=== PATIENT | female | born 1945 | race Caucasian/White ===

== ENCOUNTER 2023-06-23 06:51 | Inpatient (IN) | payer MEDICARE, OTHER, SELFPAY ==
[2023-06-23] VITALS (20 sets, daily range): BP systolic 103–167; BP diastolic 57–96; PULSE 87–125; RESP 14–32; TEMP 36.4–36.9; O2SAT 90–100; BMI 13.4
--- NOTE | 2023-06-23 06:56 | ECG_ITS ---
[facility] Test Date: 2023-06-23 Pat Name: Valencia Neri Department: Room: Gender: Female [employer]er [employer]: : 1945 Requested By: Jake Salazar Order Number: [id number] Mile MD: Dora Fisher M.D. Measurements Intervals [place] Rate: 121 P: 78 NV: 120 QRS: 71 QRSD: 89 T: 73 QT: 305 QTc: 433 Interpretive Statements SINUS TACHYCARDIA SEPTAL MYOCARDIAL INFARCTION , PROBABLY OLD [40+ ms Q WAVE IN V1/V2] No previous ECG available for comparison Electronically Signed On 06-23-2023 11:08:22 CDT by Dora Fisher M.D. [id number]
--- NOTE | 2023-06-23 06:56 | XRR_ITS ---
PROCEDURE INFORMATION: Exam: XR Chest Exam date and time: 06/23/2023 7:34 AM Age: 77 years old Clinical indication: Cough and dyspnea; Additional info: Dyspnea/cough TECHNIQUE: Imaging protocol: Radiologic exam of the chest. Views: 1 view. COMPARISON: No relevant prior studies available. FINDINGS: Lungs: Hyperinflated lungs. Pleural spaces: Unremarkable. No pleural effusion. No pneumothorax. Heart/Mediastinum: Unremarkable. No cardiomegaly. Bones/joints: Unremarkable. XR/XR chest 1V portable [id number] IMPRESSION: Hyperinflated lungs. No acute process
--- NOTE | 2023-06-23 07:00 | W.ED.SOB ---
HPI - SOB/Dyspnea General: Chief Complaint: Shortness of Breath/Dyspnea Stated Complaint: SOB Time Seen by Provider: 06/23/23 06:56 Source: patient Mode of arrival: ambulatory History of Present Illness: HPI Narrative: 77 yo female presents emergency room via EMS for complaints of shortness of breath and cough that worsened last night. Patient is a lifelong 1-2 pack-a-day smoker who is COPD and has not been on oxygen up to this point. She denies any fever sweats or chills EMS reported room air O2 sats 88% on their arrival she was given Solu-Medrol and DuoNeb in route is feeling much better and her sats are now in the upper 90s on room air. Denies chest or abdominal pain. She has had increased cough, mildly productive MD elicited complaint: shortness of breath and cough Pertinent past history: COPD Onset (ago): day(s) (1) Timing: constant Severity: moderate Exacerbating factors: exertion and coughing Relieving factors: oxygen, rest and bronchodilators Known history of: COPD Associated symptoms: Reports chest congestion and cough; Deny abdominal pain, chest pain, diaphoresis, dizziness, extremity pain, fever(s), hemoptysis, lightheadedness, myalgias, nausea, orthopnea, palpitations, paresthesias, polydipsia, polyuria, rash, sense of impending doom, syncope or vomiting Treatment prior to arrival: bronchodilator and other (Corticosteroids) Review of Systems Const: Denies: fever(s), chills or diaphoresis ENMT: Denies: throat pain, ear or mastoid pain, nasal discharge or nasal congestion Card: Denies: chest pain, palpitations, lightheadedness, syncope or orthopnea Resp: Reports: dyspnea, productive cough, wheezing and chest congestion; Denies: hemoptysis GI: Denies: abdominal pain, nausea or vomiting : Denies: flank pain, difficulty voiding, dysuria, urinary frequency or urinary urgency Musc: Denies: extremity pain Skin/Breast: Denies: rash or pruritus Neuro: Denies: dizziness Endo: Denies: polyuria or polydipsia [facility] ED PFSH: Medical History (Updated 06/23/23 @ 09:46 by Brent Mahmood MD) COPD (chronic obstructive pulmonary disease) History of myocardial infarction Osteogenesis imperfecta Surgical History (Updated 06/23/23 @ 09:42 by Brent Mahmood MD) History of surgery on lower extremity Family History Other CAD (coronary artery disease) Social History (Updated 06/23/23 @ 09:43 by Brent Mahmood MD) Smoking and tobacco status: current every day smoker cigarettes Packs smoked per day: 2 Years cigarettes smoked: 60 Alcohol intake: never Physical Exam Const: GENERAL APPEARANCE: cooperative and comfortable ORIENTATION/CONSCIOUSNESS: Yes awake, Yes oriented to person, Yes oriented to place and Yes oriented to time HENMT: COMMON NORMALS: normocephalic, atraumatic and hearing grossly normal bilaterally HEAD & SCALP: normocephalic and atraumatic Chest: CHEST: Yes other (Significant barrel chest deformity) Resp: COMMON NORMALS: normal respiratory effort, No retractions and No use of accessory muscles AUSCULTATION: wheezes Cardio: COMMON NORMALS: regular rhythm and No murmurs present (Cardio) RATE: tachycardic RHYTHM: regular rhythm GI: COMMON NORMALS: Soft to palpation and No hepatosplenomegaly present AUSCULTATION: Yes normoactive bowel sounds PALPATION: Yes Soft to palpation, No Tenderness to palpation present (GI), No Guarding due to palpation present (GI) and Yes No hepatosplenomegaly present Extremity: COMMON NORMALS: normal to inspection, capillary refill normal, no clubbing, cyanosis or edema, no calf tenderness and no pedal edema Neuro: SENSORIUM/ORIENTATION: Yes oriented to person, Yes oriented to place and Yes oriented to time Skin: COMMON NORMALS: no rashes or lesions noted GENERAL SKIN EXAM: no rashes or lesions noted Course Vital Signs: Vital signs: Vital Signs Temperature 97.8 F 06/23/23 13:30 Pulse Rate 98 06/23/23 13:30 Respiratory Rate 15 06/23/23 13:30 Blood Pressure 126/66 06/23/23 13:30 Pulse Oximetry 95 06/23/23 13:30 Oxygen Delivery Me thod Nasal Cannula 06/23/23 13:30 Oxygen Flow Rate 3 06/23/23 08:41 Fraction of Inspir ed Oxygen 35 06/23/23 08:45 MDM - SOB/Dyspnea Medical Decision Making Initially on arrival sats maintaining good on room air however worsening now requiring 3 L/min is maintaining in the low 90s. She is mildly acidotic on her blood gas. She reports feeling better after the nebulizer. She has received Solu-Medrol as well. She does report a mild increase in baseline cough with productive purulent sputum. We will start her on Levaquin and admit continue steroids. We will discuss with the hospitalist. Patient placed on BiPAP. Medical Records I reviewed the patient's medical records. Lab Data I reviewed the patient's lab results. 06/23/23 06:53 06/23/23 06:53 Labs/Radiology: Radiology Impressions Chest X-Ray 06/23/23 06:56 IMPRESSION: Hyperinflated lungs. No acute process Laboratory Results WBC 14.6 10^3/uL (4.0-10.0) H 06/23/23 06:53 RBC 4.45 10^6/uL (4.1-5.3) 06/23/23 06:53 Hgb 14.3 g/dL (11.5-15.3) 06/23/23 06:53 Hct 44.5 % (37.0-47.0) 06/23/23 06:53 MCV 100.0 fl (81-99) H 06/23/23 06:53 MCH 32.1 pg (28.0-34.0) 06/23/23 06:53 MCHC 32.1 g/dL (30.0-36.0) 06/23/23 06:53 RDW 13.0 % (12.1-15.1) 06/23/23 06:53 Plt Count 352 10^3/cmm (130-400) 06/23/23 06:53 MPV 9.3 fL (7.4-10.4) 06/23/23 06:53 Neut % (Auto) 71.4 % 06/23/23 06:53 Lymph % (Auto) 17.5 % 06/23/23 06:53 [place] % (Auto) 9.5 % 06/23/23 06:53 Eos % (Auto) 0.5 % 06/23/23 06:53 Baso % (Auto) 0.7 % 06/23/23 06:53 Neut # (Auto) 10.38 10^3/uL (1.8-7.7) H 06/23/23 06:53 Lymph # (Auto) 2.6 10^3/uL (0.8-4.8) 06/23/23 06:53 [place] # (Auto) 1.4 10^3/uL (0.2-0.9) H 06/23/23 06:53 Eos # (Auto) 0.1 10^3/uL (0.0-0.8) 06/23/23 06:53 Baso # (Auto) 0.1 10^3/uL (0.0-0.1) 06/23/23 06:53 Nucleated RBC % (auto) 0 % 06/23/23 06:53 Nucleated RBCs # 0.0 /100WBC 06/23/23 06:53 Specimen Type Arterial 06/23/23 07:06 Sample Site Radial, left 06/23/23 07:06 ABG pH 7.32 (7.35-7.45) L 06/23/23 07:06 ABG pCO2 45.7 mmHg (35-45) H 06/23/23 07:06 ABG pO2 60.8 mmHg (80.0-100.0) L 06/23/23 07:06 ABG HCO3 23.4 mmol/L (22-26) 06/23/23 07:06 ABG O2 Saturation 91.2 06/23/23 07:06 ABG Base Excess -2.9 mmol/L (-2.0-2.0) L 06/23/23 07:06 Kp Test Pos 06/23/23 07:06 A-a O2 Gradient 4.4 mmHg (5-10) L 06/23/23 07:06 Hematocrit 44.9 % (37-47) 06/23/23 07:06 Hgb O2 Saturation 89.1 % (95-100) L 06/23/23 07:06 Carboxyhemoglobin 1.9 %THgb (0.4-20.1) 06/23/23 07:06 Methemoglobin 0.4 % (0.4-1.5) 06/23/23 07:06 Total Hemoglobin 14.7 g/dL (12-16) 06/23/23 07:06 Sodium 138.0 mmol/L (131-143) 06/23/23 07:06 Potassium 4.0 mmol/L (3.5-5.0) 06/23/23 07:06 Glucose 100.0 mg/dL (70-115) 06/23/23 07:06 Ionized Calcium 1.2 mmol/L (1.1-1.4) 06/23/23 07:06 O2 Delivery Device Nc 06/23/23 07:06 O2 Liters/Min 2.0 % 06/23/23 07:06 [employer] Ranger ID [place] 06/23/23 07:06 Sodium 135 mmol/L (136-145) L 06/23/23 06:53 Potassium 4.5 mmol/L (3.5-5.1) 06/23/23 06:53 Chloride 98 mmol/L (98-107) 06/23/23 06:53 Carbon Dioxide 23 mmol/L (22-29) 06/23/23 06:53 Anion Gap 18.5 (5-19) 06/23/23 06:53 BUN 11 mg/dL (8-23) 06/23/23 06:53 Creatinine 0.6 mg/dL (0.5-0.9) 06/23/23 06:53 GFR Calculation Not Reportable 06/23/23 06:53 Glucose 90 mg/dL (65-115) 06/23/23 06:53 Calculated Osmolality 279 mOsm/kg (285-295) L 06/23/23 06:53 Calcium 8.9 mg/dL (8.5-10.5) 06/23/23 06:53 Magnesium 2.0 mg/dL (1.7-2.3) 06/23/23 06:53 Total Bilirubin 0.5 mg/dL (0.15-1.2) 06/23/23 06:53 AST 16 U/L (0-32) 06/23/23 06:53 ALT 11 U/L (0-33) 06/23/23 06:53 Alkaline Phosphatase 85 U/L (35-105) 06/23/23 06:53 NT-Pro-B Natriuret Pep 233 pg/mL (0-450) 06/23/23 06:57 Total Protein 6.8 g/dL (6.6-8.7) 06/23/23 06:53 Albumin 4.2 g/dL (3.5-5.2) 06/23/23 06:53 Globulin 2.6 g/dL (1.3-4.6) 06/23/23 06:53 TSH 4.65 uIU/mL (0.27-4.20) H 06/23/23 06:57 Urine Color Yellow (Yellow) 06/23/23 07:58 Urine Appearance Clear (CLEAR) 06/23/23 07:58 Urine pH 5 (5-7) 06/23/23 07:58 Ur Specific [place] 1.025 (1.005-1.030) 06/23/23 07:58 Urine Protein Neg (Negative) 06/23/23 07:58 Urine Glucose (UA) Norm (Normal) 06/23/23 07:58 Urine Ketones 2+ (Negative) H 06/23/23 07:58 Urine Blood Neg (Negative) 06/23/23 07:58 Urine Nitrate Negative (Negative) 06/23/23 07:58 Urine Bilirubin 1+ (Negative) H 06/23/23 07:58 Urine Urobilinogen Norm mg/dL (Negative) 06/23/23 07:58 Ur Leukocyte Esterase Negative (Negative) 06/23/23 07:58 Discharge Plan Discharge Patient Disposition: Placed in Observation Admit Provider: Brent Mahmood Clinical Impression: Acute exacerbation of chronic obstructive airways disease Coding Level of Care Code ED Maintenance Trainer for Dionisio Tsang
[2023-06-23 07:05] LABS: Basophils # 0.1 10^3/uL (0.0-0.1); Basophils % 0.7 %; Eosinophils # 0.1 10^3/uL (0.0-0.8); Eosinophils % 0.5 %; Hematocrit 44.5 % (37.0-47.0); Hemoglobin 14.3 g/dL (11.5-15.3); Lymphocytes # 2.6 10^3/uL (0.8-4.8); Lymphocytes % 17.5 %; Mean Corpuscular HGB Conc 32.1 g/dL (30.0-36.0); Mean Corpuscular Hemoglobin 32.1 pg (28.0-34.0); Mean Platelet Volume 9.3 fL (7.4-10.4); Monocytes # 1.4 10^3/uL (0.2-0.9); Monocytes % 9.5 %; Neutrophils # 10.38 10^3/uL (1.8-7.7); Neutrophils % 71.4 %; Nucleated Red Blood Cells % 0 %; Platelet Count 352 10^3/cmm (130-400); Red Blood Count 4.45 10^6/uL (4.1-5.3); White Blood Count 14.6 10^3/uL (4.0-10.0)
[2023-06-23] MEDS: methylPREDNISolone sod succ 125 MG in water for injection-sterile 2 ML 24 MG IVP (07:13)
[2023-06-23 07:17] LABS: ABG PCO2 45.7 mmHg (35-45); ABG PH Result 7.32 (7.35-7.45); Alveolar-Arterial Oxygen Gradi 4.4 mmHg (5-10); Arterial Blood Gas Hematocrit 44.9 % (37-47); Base Excess ABG -2.9 mmol/L (-2.0-2.0); Blood Gas Allen Test Pos; Blood Gas Operator Identificat WALCI; Blood Gas Sample Site Radial, left; Blood Gas Sample Type Arterial; Carboxyhemoglobin 1.9 %THgb (0.4-20.1); HCO3 ABG 23.4 mmol/L (22-26); HGB O2 Sat 89.1 % (95-100); Ionized Calcium Level - ABG 1.2 mmol/L (1.1-1.4); Methemoglobin 0.4 % (0.4-1.5); Oxygen Device NC; Oxygen Saturation ABG 91.2; PO2 ABG 60.8 mmHg (80.0-100.0); Total Hemoglobin 14.7 g/dL (12-16)
[2023-06-23 07:22] LABS: Alanine Aminotransferase 11 U/L (0-33); Albumin Level 4.2 g/dL (3.5-5.2); Alkaline Phosphatase 85 U/L (35-105); Blood Urea Nitrogen 11 mg/dL (8-23); Calcium 8.9 mg/dL (8.5-10.5); Carbon Dioxide 23 mmol/L (22-29); Chloride 98 mmol/L (98-107); Globulin 2.6 g/dL (1.3-4.6); Glucose 90 mg/dL (65-115); Osmolality Calculated 279 mOsm/kg (285-295); Sodium 135 mmol/L (136-145); Total Bilirubin 0.5 mg/dL (0.15-1.2); Total Protein 6.8 g/dL (6.6-8.7)
[2023-06-23] MEDS: ipratropium-albuterol 3 mL Neb INHALATION ×4 (07:22→20:44)
--- NOTE | 2023-06-23 07:23 | PC.NURSE ---
PUSHED MEDS FOR PT AN RN STUDENT
[2023-06-23 07:27] LABS: Anion Gap 18.5 (5-19); Aspartate Amino Transferase 16 U/L (0-32); Potassium 4.5 mmol/L (3.5-5.1)
[2023-06-23 08:11] LABS: Add Urine Microscopic? NO; Charge for UA Resulting for Rev
[2023-06-23 08:21] LABS: Bilirubin Urine 1+ (Negative); Blood Urine Neg (Negative); Glucose Urine UA Norm (Normal); Ketones Urine 2+ (Negative); Leukocyte Esterase Urine Negative (Negative); Nitrate Urine Negative (Negative); Protein Urine Neg (Negative); Specific Gravity, Urine 1.025 (1.005-1.030); Urine Appearance Clear (CLEAR); Urine Color Yellow (Yellow); Urobilinogen Urine Norm (Negative); pH Urine 5 (5-7)
--- NOTE | 2023-06-23 08:25 | PC.NURSE ---
PT WAS UPPED FROM 2L OS NC TO 3L O2 NC PER DR LEZAMA
[2023-06-23] MEDS: levofloxacin-dextrose 5 % 500 MG/100 ML PREMIX 100 MG IV (08:46)
--- NOTE | 2023-06-23 09:39 | P.HP_ITS ---
Providers/Chief Complaint Admitting Physician: Brent Mahmood MD Primary Care Provider: JAXON Carpio Chief Complaint: SOB History of Present Illness Valencia Neri is a 77 year old female with history of COPD, osteogenesis imperfecta, tobacco dependency who presents with worsening shortness of breath over the last week, but worsening significantly last night. She reports a cough productive of yellow to green sputum. No chest pain. Lots of wheezing and coughing. She reports she had some nausea but no vomiting. She denies any lower extremity swelling. She reports she has not been using any oxygen at home, although as this was suggested at a previous physician's appointment. 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 No fever. 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 Review of Systems General: Reports: 10 or more systems reviewed and unremarkable except in HPI and below Card: Denies: chest pain or swelling of feet/ankles Resp: Reports: dyspnea, productive cough and wheezing GI: Reports: nausea; Denies: abdominal pain, vomiting, hematochezia or melena Medications/Allergies Home Medications Medication Instructions Recorded Confirmed Last Taken Type albuterol sulfate 90 mcg/actuation 2 puff inhalation QID PRN 06/23/23 06/23/23 Unknown History aerosol inhaler Shortness Of Breath aspirin 325 mg tablet 325 mg PO Q6H PRN Pain 06/23/23 06/23/23 Unknown History diphenhydramine HCl 25 mg tablet 25 mg PO DAILY PRN Allergy Symptoms 06/23/23 06/23/23 Unknown History (Benadryl Allergy) fluticasone 250 mcg-salmeterol 50 1 inh inhalation BID 06/23/23 06/23/23 Unknown History mcg/dose blistr powdr for inhalation (Wixela Inhub) Allergies Allergy/AdvReac Type Severity Reaction Status Date / Time Penicillins Allergy ALGY-Anaphy Verified 06/23/23 07:39 laxis PFSH Acute PFSH: Medical History (Updated 06/23/23 @ 09:46 by Brent Mahmood MD) COPD (chronic obstructive pulmonary disease) History of myocardial infarction Osteogenesis imperfecta Surgical History (Updated 06/23/23 @ 09:42 by Brent Mahmood MD) History of surgery on lower extremity Family History Other CAD (coronary artery disease) Social History (Updated 06/23/23 @ 09:43 by Brent Mahmood MD) Smoking and tobacco status: current every day smoker cigarettes Packs smoked per day: 2 Years cigarettes smoked: 60 Alcohol intake: never Vitals/I&O/Wt Last Vital Signs Temp 98.4 F 06/23/23 06:57 Pulse 116 H 06/23/23 09:32 Resp 20 H 06/23/23 09:32 BP 103/63 06/23/23 09:32 Pulse Ox 96 06/23/23 09:32 O2 Del Method Room Air 06/23/23 09:32 O2 Flow Rate 3 06/23/23 08:41 FiO2 35 06/23/23 08:45 06/22/23 06/23/23 06/23/23 22:59 06:59 14:59 Intake Total 2 / 2 Balance 2 / Weight last 48 hrs Weight 36.741 kg Physical Exam Narrative: General exam is white female, with tachypnea, on BiPAP but able to carry on a conversation. HEENT: Atraumatic normocephalic. Oropharynx not examined as she is on BiPAP Neck is supple no lymphadenopathy thyromegaly Cardiovascular tachycardic, regular, 2 or 6 systolic murmur Lungs diminished breath sounds bilaterally. Occasional wheeze. Barrel chest is noted Abdomen is soft, positive bowel sounds. No obvious organomegaly exams deferred Extremities no cyanosis clubbing or edema, cap refill brisk Skin no rash Neuro no focal deficits Data 06/23/23 06:53 06/23/23 06:53 Other Labs: Chest x-ray which I reviewed demonstrates severe COPD EKG demonstrates sinus tachycardia, normal axis, septal Q waves, nonspecific ST- T wave changes. I reviewed this personally. ABG demonstrates pH 7.32, PCO2 46, PO2 of 61 on 2 L LFTs are normal Urinalysis with 2+ ketones and 1+ bilirubin, otherwise negative Viral panel pending A&P Assessment and plan (1) Acute exacerbation of chronic obstructive airways disease: Patient with severe acute COPD exacerbation associated with respiratory failure requiring BiPAP In detailed conversation with her. She would never want CPR, or intubation. Budesonide twice daily DuoNeb every 4 hours Continue Solu-Medrol IV Wean off BiPAP as tolerated CBC, CMP, magnesium level in the morning (2) Acute bronchitis: Continue Levaquin, initiated in the ER at 750 mg IV every 24 hours Await viral sputum studies (3) Acute respiratory failure: Currently on BiPAP secondary to acute hypoxic and hypercarbic respiratory failure See notations above (4) History of myocardial infarction: Continue aspirin Considering her body habitus any attempted echo will generate a very poor quality study. Will go ahead and check a BNP, which I suspect will be slightly high. Plan Other medical problems as outlined in past medical history Allow natural Lovenox for DVT prophylaxis Attestations Medical Necessity Statement*: Will require greater than 2 midnight stay for evaluation and treatment of acute respiratory failure and acute COPD exacerbation Diagnoses Acute exacerbation of chronic obstructive airways disease J44.1 Acute bronchitis J20.9 Acute respiratory failure J96.00 History of myocardial infarction I25.2 Time Spent (min) 43
[2023-06-23 10:22] LABS: NT Pro B Type Natriuretic Pept 233 pg/mL (0-450); Thyroid Stimulating Hormone 4.65 uIU/mL (0.27-4.20)
[2023-06-23 11:01] LABS: Adenovirus Not Detected (NOT DETECT); Chlamydia Pneumoniae Not Detected (NOT DETECT); Coronavirus 229E,HKU1,NL63,OC4 Not Detected (NOT DETECT); Human Metapneumovirus Not Detected (NOT DETECT); Human Rhinovirus/Enterovirus Not Detected (NOT DETECT); Influenza A Not Detected (NOT DETECT); Influenza A H1 Not Detected (NOT DETECT); Influenza A H1-2009 Not Detected (NOT DETECT); Influenza A H3 Not Detected (NOT DETECT); Influenza B Not Detected (NOT DETECT); Mycoplasma Pneumoniae Not Detected (NOT DETECT); Parainfluenza Virus Type 1 Not Detected (NOT DETECT); Parainfluenza Virus Type 2 Not Detected (NOT DETECT); Parainfluenza Virus Type 3 Not Detected (NOT DETECT); Parainfluenza Virus Type 4 Not Detected (NOT DETECT); Respiratory Syncytial Virus A Not Detected (NOT DETECT); Respiratory Syncytial Virus B Not Detected (NOT DETECT); SARS-COV-2 Not Detected (NOT DETECT)
[2023-06-23] MEDS: methylPREDNISolone sod succ 60 MG in water for injection-sterile 0.96 ML 11.52 MG IVP (18:06)
[2023-06-23] MEDS: budesonide 0.5 mg/2 mL Neb INHALATION (20:44)
[2023-06-24] VITALS (11 sets, daily range): BP systolic 134–157; BP diastolic 73–79; PULSE 79–107; RESP 17–22; TEMP 36.4–36.5; O2SAT 86–97
[2023-06-24] MEDS: ipratropium-albuterol 3 mL Neb INHALATION ×4 (00:01→11:06)
[2023-06-24 05:22] LABS: Basophils % 0.2 %; Hematocrit 38.9 % (37.0-47.0); Hemoglobin 12.8 g/dL (11.5-15.3); Lymphocytes # 0.6 10^3/uL (0.8-4.8); Lymphocytes % 4.6 %; Mean Corpuscular HGB Conc 32.9 g/dL (30.0-36.0); Mean Corpuscular Hemoglobin 31.9 pg (28.0-34.0); Mean Platelet Volume 9.7 fL (7.4-10.4); Monocytes # 1.1 10^3/uL (0.2-0.9); Monocytes % 8.1 %; Neutrophils % 86.7 %; Nucleated Red Blood Cells % 0 %; Platelet Count 312 10^3/cmm (130-400); Red Blood Count 4.01 10^6/uL (4.1-5.3); Red Cell Distribution Width 12.9 % (12.1-15.1)
[2023-06-24 05:43] LABS: Alanine Aminotransferase 11 U/L (0-33); Albumin Level 3.9 g/dL (3.5-5.2); Alkaline Phosphatase 84 U/L (35-105); Anion Gap 14.6 (5-19); Aspartate Amino Transferase 15 U/L (0-32); Blood Urea Nitrogen 23 mg/dL (8-23); Carbon Dioxide 25 mmol/L (22-29); Chloride 96 mmol/L (98-107); Glucose 152 mg/dL (65-115); Magnesium 2.1 mg/dL (1.7-2.3); Osmolality Calculated 279 mOsm/kg (285-295); Potassium 4.6 mmol/L (3.5-5.1); Sodium 131 mmol/L (136-145); Total Bilirubin 0.2 mg/dL (0.15-1.2); Total Protein 6.9 g/dL (6.6-8.7)
[2023-06-24] MEDS: methylPREDNISolone sod succ 60 MG in water for injection-sterile 0.96 ML 11.52 MG IVP (06:06)
[2023-06-24] MEDS: levofloxacin-dextrose 5 % 750 MG/150 ML PREMIX 100 MG IV (08:19)
[2023-06-24] MEDS: budesonide 0.5 mg/2 mL Neb INHALATION (08:46)
--- NOTE | 2023-06-24 10:10 | PC.CHAP ---
Pastoral Care Encounter/Spiritual Assessment Type of Contact [] Declined machine filler shredder visit [] Patient/Family/Request visit [] Outpatient visit [] Follow-up visit [] Physician referral [] Code/Alert [x] Routine visit [] Staff referral [] Actively dying [] Patient sleeping [x] Family support [] [] Out of room [] Palliative care [] [] Receiving care in room [] Pre-surgical visit [] Trauma [] Long length of stay [] ICU visit [] Other: Relational/Emotional Strength [x] Patient feels connected with others/family/visitors/staff [] Distress [] Loneliness/isolation [] Abandonment Spirituality of Patient [x] Person of Jayna [] Attends Uatsdin of their Jayna [x] Believes in Prayer [] Reads Bible or Evangelical materials [] There are Spiritual issues to be addressed Resort Keeper Interventions [x] Prayer [x] Active listening [] Non-anxious presence [x] Spiritual/emotional support [] Crisis/trauma care [] Spiritual counseling [] Bereavement support [] Provided bereavement packet [] Provided Bible/devotional materials [] Provided toy/stuffed animal, coloring book to patient or family member [] Provided Communion [] Anointing/[place] [] Salvation [x] Completed spiritual assessment [] Other: Impact on Illness or Injury [] Angry [] Fearful [] Anxious [] Often cries [] Exhaustion [] Unable to work [] Unable to attend jain [] Unable to walk/stand [] Unable to read [] Unable to drive [] Unable to eat/drink [] Unable to sleep [] Unable to be with family [] Patient intubated [] Other: Summary Time spent with patient 5 min
[2023-06-24] MEDS: levoFLOXacin 750 mg Tablet PO (10:26)
--- NOTE | 2023-06-24 10:27 | PM.DCS ---
Discharge Providers Date of Admission: 06/23/23 08:24 Date of Discharge: June 24, 2023 Attending Provider at Admission: Brent Mahmood MD Attending Provider at Discharge: Brent Mahmood MD Primary Care Provider: JAXON Carpio Diagnoses at Discharge Discharge Diagnosis (1) Acute exacerbation of chronic obstructive airways disease: Status: Acute (2) Acute bronchitis: Status: Acute (3) Acute respiratory failure: Status: Acute (4) History of myocardial infarction: Status: Acute Reason for Visit Reason for Visit: SOB Hospital Course Hospital Course [place] is a 77-year-old white female who presents to the hospital with shortness of breath. She was found to have an acute COPD exacerbation. She was placed on IV steroids, oral antibiotics, BiPAP initially, and received frequent nebulized treatments. No pneumonia was seen on x-ray. She was able to wean off the BiPAP quickly. Wheezing improved significantly with the above treatment and she improved quicker than expected, feeling like she was back to her baseline breathing by June 24. After shared decision making occurred with the patient, she reported she would like to go home at this time to continue treatment on oral medications at home. We will arrange for nebulizer, DuoNeb as needed, finish her course of prednisone, finish her course of antibiotic, home oxygen evaluation and set up oxygen if needed, and discharged home today. She refused any home health services. Patient was given opportunity ask questions, and agreed with the plan. Physical Exam Narrative: General exam is no distress Neck is supple Cardiovascular regular rate and rhythm Lungs diminished breath sounds bilaterally but no wheezes or crackles Abdomen is soft, positive bowel sounds Extremities no cyanosis clubbing or edema Discharge Data Studies Completed and Pending Completed Studies During Hospitalization Category Date Time Status XR chest 1V portable [id number] Stat Exams 06/23/23 06:56 Completed Radiology Impressions Chest X-Ray 06/23/23 06:56 IMPRESSION: Hyperinflated lungs. No acute process Laboratory Results WBC 13.0 10^3/uL (4.0-10.0) H 06/24/23 05:06 RBC 4.01 10^6/uL (4.1-5.3) L 06/24/23 05:06 Hgb 12.8 g/dL (11.5-15.3) 06/24/23 05:06 Hct 38.9 % (37.0-47.0) 06/24/23 05:06 MCV 97.0 fl (81-99) 06/24/23 05:06 MCH 31.9 pg (28.0-34.0) 06/24/23 05:06 MCHC 32.9 g/dL (30.0-36.0) 06/24/23 05:06 RDW 12.9 % (12.1-15.1) 06/24/23 05:06 Plt Count 312 10^3/cmm (130-400) 06/24/23 05:06 MPV 9.7 fL (7.4-10.4) 06/24/23 05:06 Neut % (Auto) 86.7 % 06/24/23 05:06 Lymph % (Auto) 4.6 % 06/24/23 05:06 [place] % (Auto) 8.1 % 06/24/23 05:06 Eos % (Auto) 0.0 % 06/24/23 05:06 Baso % (Auto) 0.2 % 06/24/23 05:06 Neut # (Auto) 11.30 10^3/uL (1.8-7.7) H 06/24/23 05:06 Lymph # (Auto) 0.6 10^3/uL (0.8-4.8) L 06/24/23 05:06 [place] # (Auto) 1.1 10^3/uL (0.2-0.9) H 06/24/23 05:06 Eos # (Auto) 0.0 10^3/uL (0.0-0.8) 06/24/23 05:06 Baso # (Auto) 0.0 10^3/uL (0.0-0.1) 06/24/23 05:06 Nucleated RBC % (auto) 0 % 06/24/23 05:06 Nucleated RBCs # 0.0 /100WBC 06/24/23 05:06 Specimen Type Arterial 06/23/23 07:06 Sample Site Radial, left 06/23/23 07:06 ABG pH 7.32 (7.35-7.45) L 06/23/23 07:06 ABG pCO2 45.7 mmHg (35-45) H 06/23/23 07:06 ABG pO2 60.8 mmHg (80.0-100.0) L 06/23/23 07:06 ABG HCO3 23.4 mmol/L (22-26) 06/23/23 07:06 ABG O2 Saturation 91.2 06/23/23 07:06 ABG Base Excess -2.9 mmol/L (-2.0-2.0) L 06/23/23 07:06 Kp Test Pos 06/23/23 07:06 A-a O2 Gradient 4.4 mmHg (5-10) L 06/23/23 07:06 Hematocrit 44.9 % (37-47) 06/23/23 07:06 Hgb O2 Saturation 89.1 % (95-100) L 06/23/23 07:06 Carboxyhemoglobin 1.9 %THgb (0.4-20.1) 06/23/23 07:06 Methemoglobin 0.4 % (0.4-1.5) 06/23/23 07:06 Total Hemoglobin 14.7 g/dL (12-16) 06/23/23 07:06 Sodium 138.0 mmol/L (131-143) 06/23/23 07:06 Potassium 4.0 mmol/L (3.5-5.0) 06/23/23 07:06 Glucose 100.0 mg/dL (70-115) 06/23/23 07:06 Ionized Calcium 1.2 mmol/L (1.1-1.4) 06/23/23 07:06 O2 Delivery Device Nc 06/23/23 07:06 O2 Liters/Min 2.0 % 06/23/23 07:06 Systems Analysis Manager ID [place] 06/23/23 07:06 Sodium 131 mmol/L (136-145) L 06/24/23 05:06 Potassium 4.6 mmol/L (3.5-5.1) 06/24/23 05:06 Chloride 96 mmol/L (98-107) L 06/24/23 05:06 Carbon Dioxide 25 mmol/L (22-29) 06/24/23 05:06 Anion Gap 14.6 (5-19) 06/24/23 05:06 BUN 23 mg/dL (8-23) 06/24/23 05:06 Creatinine 0.9 mg/dL (0.5-0.9) 06/24/23 05:06 GFR Calculation Not Reportable 06/24/23 05:06 Glucose 152 mg/dL (65-115) H 06/24/23 05:06 Calculated Osmolality 279 mOsm/kg (285-295) L 06/24/23 05:06 Calcium 9.0 mg/dL (8.5-10.5) 06/24/23 05:06 Magnesium 2.1 mg/dL (1.7-2.3) 06/24/23 05:06 Total Bilirubin 0.2 mg/dL (0.15-1.2) 06/24/23 05:06 AST 15 U/L (0-32) 06/24/23 05:06 ALT 11 U/L (0-33) 06/24/23 05:06 Alkaline Phosphatase 84 U/L (35-105) 06/24/23 05:06 NT-Pro-B Natriuret Pep 233 pg/mL (0-450) 06/23/23 06:57 Total Protein 6.9 g/dL (6.6-8.7) 06/24/23 05:06 Albumin 3.9 g/dL (3.5-5.2) 06/24/23 05:06 Globulin 3.0 g/dL (1.3-4.6) 06/24/23 05:06 TSH 4.65 uIU/mL (0.27-4.20) H 06/23/23 06:57 Urine Color Yellow (Yellow) 06/23/23 07:58 Urine Appearance Clear (CLEAR) 06/23/23 07:58 Urine pH 5 (5-7) 06/23/23 07:58 Ur Specific [place] 1.025 (1.005-1.030) 06/23/23 07:58 Urine Protein Neg (Negative) 06/23/23 07:58 Urine Glucose (UA) Norm (Normal) 06/23/23 07:58 Urine Ketones 2+ (Negative) H 06/23/23 07:58 Urine Blood Neg (Negative) 06/23/23 07:58 Urine Nitrate Negative (Negative) 06/23/23 07:58 Urine Bilirubin 1+ (Negative) H 06/23/23 07:58 Urine Urobilinogen Norm mg/dL (Negative) 06/23/23 07:58 Ur Leukocyte Esterase Negative (Negative) 06/23/23 07:58 Nasal Influ A H1 2009 PCR Not detected (NOT DETECT) 06/23/23 08:40 Adenovirus (PCR) Not detected (NOT DETECT) 06/23/23 08:40 C. pneumoniae DNA (PCR) Not detected (NOT DETECT) 06/23/23 08:40 Coronavirus 229E (PCR) Not detected (NOT DETECT) 06/23/23 08:40 Human Metapneumovir PCR Not detected (NOT DETECT) 06/23/23 08:40 Influenza A (H1) PCR Not detected (NOT DETECT) 06/23/23 08:40 Influenza A (H3) PCR Not detected (NOT DETECT) 06/23/23 08:40 Influenza Type A (PCR) Not detected (NOT DETECT) 06/23/23 08:40 Influenza Type B (PCR) Not detected (NOT DETECT) 06/23/23 08:40 M. pneumoniae (PCR) Not detected (NOT DETECT) 06/23/23 08:40 Parainfluenza 1 (PCR) Not detected (NOT DETECT) 06/23/23 08:40 Parainfluenza 2 (PCR) Not detected (NOT DETECT) 06/23/23 08:40 Parainfluenza 3 (PCR) Not detected (NOT DETECT) 06/23/23 08:40 Parainfluenza 4 (PCR) Not detected (NOT DETECT) 06/23/23 08:40 RSV Type A (PCR) Not detected (NOT DETECT) 06/23/23 08:40 RSV Type B (PCR) Not detected (NOT DETECT) 06/23/23 08:40 Entero/Rhino (PCR) Not detected (NOT DETECT) 06/23/23 08:40 SARS-CoV-2 (PCR) Not detected (NOT DETECT) 06/23/23 08:40 Vitals Last Vital Signs Temp 97.7 F 06/24/23 07:25 Pulse 101 H 06/24/23 08:53 Resp 20 H 06/24/23 08:48 BP 146/73 06/24/23 07:25 Pulse Ox 95 06/24/23 08:48 O2 Del Method Nasal Cannula 06/24/23 08:48 O2 Flow Rate 2 06/24/23 08:48 FiO2 2 06/23/23 20:47 Discharge Plan Discharge Patient Disposition: Home Condition: Stable Prescriptions: New ipratropium-albuterol 0.5 mg-3 mg(2.5 mg base)/3 mL solution for nebulization 3 ml inhalation QID Qty: 180 0RF levofloxacin 750 mg tablet 750 mg PO DAILY 5 Days Qty: 5 0RF prednisone 20 mg tablet 40 mg PO DAILY Qty: 8 0RF Continued [place]ixela Inhub 250-50 mcg/dose Blister With Device 1 inh INHALATION BID aspirin 325 mg Tablet 325 mg PO Q6H PRN (Reason: Pain) Benadryl Allergy 25 mg Tablet 25 mg PO DAILY PRN (Reason: Allergy Symptoms) albuterol sulfate 90 mcg/actuation HFA aerosol inhaler 2 puff INHALATION QID PRN (Reason: Shortness Of Breath) Discharge Orders: Discharge Order (Routine); Ordered 06/24/23 Ordered By: Brent Mahmood Other Ambulatory Orders: DME: Nebulizer with Neb Kit (Order) Location: None Selected Ordered By: Brent Mahmood Referrals: Sonal Anderson FNP [Primary Care Provider] - 4-7 days Discharge Diet: Regular Discharge Activity: Increase activity as tolerated Patient Instructions: Opioid Safety Activity Restrictions/Additional Instructions: Home oxygen evaluation prior to discharge Do not smoke Take all medicine as prescribed Follow-up with primary care provider 3 to 5 days Return for any concerns Discharge Attestations Time Spent in Discharge Care*: greater than 30 min Quality Metrics Clinical Quality Measures [ No reported AMI, CVA or VTE this stay] Coding Level of Care Code 27101 Total time (in minutes) for Discharge: 37 Diagnoses Acute exacerbation of chronic obstructive airways disease J44.1 Acute bronchitis J20.9 Acute respiratory failure J96.00 History of myocardial infarction I25.2
== END 2023-06-24 14:18 | disposition home or self-care (01) | DRG 190 ==
LOC: ER 08:36 → MEDSURG 10:21
PROVIDERS: Admitting Provider Internal Medicine; Emergency Provider Family Medicine; PCP Nurse Practitioner Family; Visit Provider Internal Medicine
DX: J44.1 Chronic obstructive pulmonary disease with (acute) exacerbation (principal); J96.01 Acute respiratory failure with hypoxia; J96.02 Acute respiratory failure with hypercapnia; Q78.0 Osteogenesis imperfecta; F17.210 Nicotine dependence, cigarettes, uncomplicated; I25.2 Old myocardial infarction; Z66 Do not resuscitate; J44.0 Chronic obstructive pulmonary disease with (acute) lower respiratory infection; J20.9 Acute bronchitis, unspecified
CPT/HCPCS: 36415; 36600; 71045; 80051; 80053; 81003; 82330; 82805; 83735; 83880; 84443; 85025; 87486; 87581; 87633; 93005; 94640; 94660; 94760; 94762; 96374; 99291; J1956; J2930; J7626